=== PATIENT | male | born 1935 | race Caucasian/White ===

== ENCOUNTER 2017-07-21 09:30 | Emergency (ER) | payer MEDICARE, OTHER, MEDICAID ==
[2017-07-21] MEDS ORDERED: HYDROmorphONE 1 MG/ML SYG IV (10:00)
[2017-07-21] MEDS: PROCHLORPERAZINE 10 MG INJ IV (10:39)
[2017-07-21] MEDS: DIPHENHYDRAMINE 50 MG INJ IV (10:40)
[2017-07-21] MEDS: HYDROmorphONE 0.5 MG/0.5 ML SYG IV (10:40)
[2017-07-21] MEDS: NICARDipine HCL 30 MG CAPSULE PO (11:21)
== END 2017-07-21 13:26 | disposition home or self-care (01) ==
LOC: E/R 09:30
DX: G43.909 Migraine, unspecified, not intractable, without status migrainosus (principal); I10 Essential (primary) hypertension; R40.2142 Coma scale, eyes open, spontaneous, at arrival to emergency department; R40.2252 Coma scale, best verbal response, oriented, at arrival to emergency department; R40.2362 Coma scale, best motor response, obeys commands, at arrival to emergency department
CPT/HCPCS: 70450; 96374; 96375; 99285-25